=== PATIENT | female | born 1995 | race Caucasian/White ===

== ENCOUNTER 2022-08-11 09:24 | Emergency (ER) | payer OTHER, SELFPAY ==
[2022-08-11 10:07] VITALS: TEMP 36.6
[2022-08-11 10:11] VITALS: BP 109/72; PULSE 85; RESP 20; O2SAT 100
--- NOTE | 2022-08-11 10:57 | ED.GENADULT ---
HPI - General Adult General Chief complaint: Abdominal Pain Stated complaint: nausea,diarrhea,headache Time Seen by Provider: 08/11/22 10:15 Source: patient, RN notes reviewed and old records reviewed Mode of arrival: ambulatory Limitations: no limitations History of Present Illness HPI narrative: 27 year old female who presents to express care with complaints of nausea with some diarrhea intermittently for the past 2 weeks, patient also reports that she had migraine also.Patient reports cramping pain at times to lower abdomen. Patient reports that she had one episode of vomiting yesterday. Patient states that her last menses was in the first part of July, states her menses is irregular not sure if she could be . Patient reports that she has some lower abdominal cramping type of discomfort that is mild but increases when she has stools, last diarrhea stool last p.m. Patient denies any fevers, chills, or sweats. Patient reports that she has some urinary frequency denies any burning with urination. Patient states no one else in household is ill. MD complaint: nausea and diarrhea with emesis yesterday Onset (ago): week(s) (diarrhea and nausea) Treatments prior to arrival: other (tylenol) Related Data Allergies Allergy/AdvReac Type Severity Reaction Status Date / Time No Known Allergies Allergy Verified 08/11/22 11:00 Review of Systems Review of Systems: CONSTITUTIONAL: Denies fever, chills, or sweats. EYES: Denies visual changes, redness, or discharge. ENT: Denies rhinorrhea, congestion, sore throat, or otalgia. CARDIOVASCULAR: Denies chest pain, palpitations, or edema. RESPIRATORY: Denies cough or dyspnea. GASTROINTESTINAL: reports lower abdominal cramping, nausea, vomiting x1, diarrhea last stool last night GENITOURINARY: Denies dysuria or hematuria reports frequency of urination SKIN: Denies rash or itching. MUSCULOSKELETAL: Denies back pain, joint pain, or myalgia. NEUROLOGIC: Reports some headache discomfort, no numbness, or weakness. All systems reviewed & are unremarkable except as noted in HPI and below Course Course Level of Care: Express Care Visit Vital Signs Vital signs: Vital Signs Oxygen Delivery Room Air 08/11/22 10:07 Pulse Rate 80 08/11/22 11:10 Respiratory Rate 16 08/11/22 11:10 Blood Pressure 108/70 08/11/22 11:10 Pulse Oximetry 99 08/11/22 11:10 Oxygen Delivery Room Air 08/11/22 11:10 Medical Decision Making Differential Diagnosis Differential Diagnosis: Gastroenteritis, nausea with diarrhea, urinary symptoms of frequency, abdominal discomfort, Medical Records Medical records reviewed: Yes I reviewed the external patient's medical records. Vital Signs Vital Signs: Vital Signs Oxygen Delivery Room Air 08/11/22 10:07 Pulse Rate 80 08/11/22 11:10 Respiratory Rate 16 08/11/22 11:10 Blood Pressure 108/70 08/11/22 11:10 Pulse Oximetry 99 08/11/22 11:10 Oxygen Delivery Room Air 08/11/22 11:10 Lab Data Lab results reviewed: Yes I reviewed the patient's lab results. Lab results narrative: urine dip: glucose negative,bilirubin negative,ketone negative, specific gravity 1.025,blood negative, PH 6.5,protein negative, urobilinogen 0.2, nitrate negative,Leukocyte trace, bed side negative Labs: UCG Bedside Result Negative Reference Range: Negative Urine Glucose Negative Reference Range: Negative Urine Bilirubin Negative Reference Range: Negative Urine Ketone Negative Reference Range: Negative Urine Specific [place] 1.025 Reference Range:1.001-1.035 Urine Blood Negative
[2022-08-11 11:10] VITALS: BP 108/70; PULSE 80; RESP 16; O2SAT 99
== END 2022-08-11 11:10 | disposition home or self-care (01) ==
PROVIDERS: Emergency Provider Registered Nurse
DX: K52.9 Noninfective gastroenteritis and colitis, unspecified (principal)
CPT/HCPCS: 81003; 81025; 99213; G0463

== ENCOUNTER 2023-05-08 22:19 | Emergency (ER) | payer OTHER, SELFPAY ==
[2023-05-08 22:31] VITALS: BP 127/73; PULSE 96; RESP 14; TEMP 36.5; O2SAT 99
[2023-05-09 00:19] VITALS: BP 138/92; PULSE 93; RESP 17; O2SAT 100
[2023-05-09 00:49] LABS: Appearance Urine Clear (Clear); Bilirubin Urine Negative (Negative); Blood Urine Negative (Negative); Color Urine Yellow (Yellow); Glucose Urine UA Negative (Negative); Ketones Urine Negative (Negative); Leukocyte Esterase Ur Negative LEU/UL (Negative); Nitrate Urine Negative (Negative); Protein Urine Negative (Negative); Specific Grav Ur 1.021 (1.001-1.035)
[2023-05-09 00:57] LABS: Alanine Aminotransferase 29 U/L (6-35); Albumin Level 4.2 g/dL (3.5-5.1); Alkaline Phosphatase 72 U/L (38-126); Anion Gap 7 mmol/L (8-16); Aspartate Amino Transferase 25 U/L (14-36); Bilirubin,Total 0.4 mg/dL (0.2-1.3); Blood Urea Nitrogen 9 mg/dL (7-17); Calcium 9.1 mg/dL (8.4-10.2); Carbon Dioxide 22 mmol/L (22-30); Chloride 104 mmol/L (98-107); Estimated CRCL calculation 220 ml/min; Estimated Glomerular Filt Rate > 60; Glucose 89 mg/dL (65-110); Lipase 30 U/L (23-300); Potassium 4.2 mmol/L (3.4-5.0); Sodium 133 mmol/L (137-145)
[2023-05-09 01:05] LABS: Basophils Absolute Auto 0.1 K/mm3 (0.0-0.1); Basophils Percent Auto 0.7 % (0.2-1.2); Eosinophils Absolute Auto 0.1 K/mm3 (0-0.3); Eosinophils Percent Auto 1.3 % (0-4.4); Hematocrit 35.8 % (37.0-47.0); Hemoglobin 11.3 g/dL (12.0-15.0); Immature Granulocyte Absolute 0.07 K/mm3 (0.00-0.031); Immature Granulocyte Percent A 0.8 % (0-0.5); Lymphocytes Absolute Auto 2.34 K/mm3 (0.9-3.2); Lymphocytes Percent Auto 28.3 % (18.3-44.2); Mean Corpuscular HGB Conc 31.6 g/dl (32-36); Mean Corpuscular Hemoglobin 25.1 pg (26-34); Mean Corpuscular Volume 79.4 fl (80-100); Mean Platelet Volume 10.2 fl (7.4-10.4); Monocytes Absolute Auto 0.6 K/mm3 (0.1-0.6); Monocytes Percent Auto 6.8 % (2.6-8.5); Neutrophils Absolute Auto 5.1 K/mm3 (1.3-6.7); Neutrophils Percent Auto 62.1 % (45.5-73.1); Platelet Count Result 296 k/mm3 (150-375); Red Blood Count 4.51 M/mm3 (4.2-5.4); Red Cell Distribution Width 15.6 % (11.5-14.5); White Blood Count 8.3 K/mm3 (4.5-10.0)
[2023-05-09] MEDS: ONDANSETRON INJ 4 MG/2 ML VIAL IV PUSH (01:06)
[2023-05-09] MEDS: SODIUM CHLORIDE 0.9% IV 1,000 ML 999 ML IV CONT ×2 (01:06)
[2023-05-09 01:08] VITALS: BP 122/76; PULSE 79; RESP 15; O2SAT 99
[2023-05-09 01:15] VITALS: BP 120/71; PULSE 81; RESP 18; O2SAT 99
[2023-05-09 01:17] LABS: Add Urine Microscopic? NO
--- NOTE | 2023-05-09 01:28 | ED.GENADULT ---
HPI - General Adult General Chief complaint: Nausea/Vomiting/Diarrhea Stated complaint: N/V 11 weeks Time Seen by Provider: 05/09/23 02:04 Source: patient Mode of arrival: ambulatory Limitations: no limitations History of Present Illness HPI narrative: 27 years old white female came to the emergency room with vomiting since been , 11 weeks. Been seen by her ACCELERATOR OPERATOR numerous of times last 1 was April 26. She is not on any antivomiting medication. She denies any fever, chills, diarrhea, urinary symptoms. She is 5, para 2 2, she denies any vaginal bleeding or discharge or abdominal pain. Related Data Allergies Allergy/AdvReac Type Severity Reaction Status Date / Time No Known Allergies Allergy Verified 08/11/22 11:00 Review of Systems Review of Systems: All systems reviewed & are unremarkable except as noted in HPI and below Exam Narrative: General appearance: Well-developed, well-nourished Skin: Normal color Head: Normocephalic, nontraumatic Eyes: Clear conjunctiva ENT: Oropharynx normal, ears normal, nose normal Neck: Supple, nontender Chest and respiratory: Airway patent, no respiratory distress, no accessory muscle use Heart: Regular rate/rhythm Abdomen: Soft, nontender, no organomegaly, quiet bowel sounds Vascular: Normal peripheral pulses, normal capillary refill. Musculoskeletal: Normal range of motion, nontender back Neurologic: Alert and oriented ?3, GYM MANAGER is normal as tested, no gross motor deficit Course Reevaluation(s) Reevaluation #1: Patient feeling much better after 2 L of normal saline. Date: 05/09/23 Time: 02:16 Vital Signs Vital signs: Vital Signs Temperature 36.5 C 05/08/23 22:31 Pulse Rate 96 05/08/23 22:31 Respiratory Rate 14 05/08/23 22:31 Blood Pressure 127/73 05/08/23 22:31 Pulse Oximetry 99 05/08/23 22:31 Oxygen Delivery Room Air 05/08/23 22:31 Temperature 36.5 C 05/08/23 22:31 Pulse Rate 93 05/09/23 00:19 Respiratory Rate 17 05/09/23 00:19 Blood Pressure 138/92 H 05/09/23 00:19 Pulse Oximetry 100 05/09/23 00:19 Oxygen Delivery Room Air 05/08/23 22:31 Medical Decision Making MDM Narrative Medical decision making narrative: Patient presents with vomiting since she been today is little bit worse than before. Differential diagnosis hyperemesis gravidarum, urinary tract infection, dehydration, electrolyte imbalance Physical examination is unremarkable. Work-up today showed normal CBC, normal chemistry, clean urine, blood pressure on arrival 127/73. Patient received 2 L of normal saline IV, 4 mg of Zofran IV, feels much better and ready to go home. the pt was discharged to home.the pt,s condition upon discharge was fair,education was provided to the pt in reference to the final impression,discharge study results,treatment,prognosis and need for follow up . Differential Diagnosis Differential Diagnosis: Hyperemesis gravidarum, viral gastroenteritis, urinary tract infection, electrolyte imbalance, dehydration Vital Signs Vital Signs: Vital Signs Temperature 36.5 C 05/08/23 22:31 Pulse Rate 96 05/08/23 22:31 Respiratory Rate 14 05/08/23 22:31 Blood Pressure 127/73 05/08/23 22:31 Pulse Oximetry 99 05/08/23 22:31 Oxygen Delivery Room Air 05/08/23 22:31 Temperature 36.5 C 05/08/23 22:31 Pulse Rate 93 05/09/23 00:19 Respiratory Rate 17 05/09/23 00:19 Blood Pressure 138/92 H 05/09/23 00:19 Pulse Oximetry 100 05/09/23 00:19 Oxygen Delivery Room Air 05/08/23 22:31 Lab Data Lab results reviewed: Yes I reviewed the patient's lab results. 05/09/23 00:41 05/09/23 00
[2023-05-09 01:30] VITALS: BP 118/75; PULSE 86; RESP 14; O2SAT 98
[2023-05-09 02:55] VITALS: BP 114/62; PULSE 79; RESP 20; O2SAT 98
== END 2023-05-09 03:05 | disposition home or self-care (01) ==
PROVIDERS: Physician Assistant; Emergency Provider Emergency Medicine
DX: O21.0 Mild hyperemesis gravidarum (principal); Z3A.11 11 weeks gestation of pregnancy
CPT/HCPCS: 36415; 80053; 81003; 81025; 83690; 84702; 85025; 96361; 96374; 99284; J2405; J7030

== ENCOUNTER 2023-08-23 21:05 | Emergency (ER) | payer OTHER, SELFPAY ==
--- NOTE | ~2023-08-23 | XR_ITS ---
Portable chest x-ray Comparison: None Clinical History: Chest pain Findings: Lungs are clear, without focal consolidation or pleural effusion. Cardiomediastinal silho uette is unremarkable. Bones and soft tissues are unremarkable. Impression: Normal chest. Reviewed, dictated and finalized at location M. Impression: Normal chest.
--- NOTE | 2023-08-23 21:07 | ECG_ITS ---
Measurements Intervals [place] Rate: 97 P: 54 MI: 125 QRS: 50 QRSD: 93 T: 34 QT: 341 QTc: 433 Interpretive Statements SINUS RHYTHM NORMAL ECG NO PREVIOUS ECG AVAILABLE FOR COMPARISON Electronically Signed On 08-24-2023 8:56:19 CDT by Curly Martinez M.D.
[2023-08-23 21:15] VITALS: BP 139/91; PULSE 97; RESP 18; TEMP 36.7; O2SAT 98
[2023-08-23 22:30] VITALS: BP 132/86; PULSE 96; PULSE 97; RESP 14; O2SAT 100
--- NOTE | 2023-08-23 23:00 | PC.NURSE ---
pt. reports to RN that they are having lower abd pain that has been going on for approx. one week. ERP and draw press operator made aware. OB called to examine pt.
[2023-08-24] VITALS: BP 131/81; PULSE 97; RESP 14; O2SAT 98
--- NOTE | 2023-08-24 00:26 | PC.NURSE ---
OB 2 labor nurses went over to the ED. FHT 140's with audible arrhythmia. rare contraction seen on tracing patient states no longer feels cramping. reported to
[2023-08-24 02:14] VITALS: BP 136/89; PULSE 118; RESP 21; O2SAT 100
[2023-08-24] MEDS: ACETAMINOPHEN 325 MG TABLET 650 MG PO (02:14)
[2023-08-24 02:20] LABS: Basophils Absolute Auto 0.1 K/mm3 (0.0-0.1); Basophils Percent Auto 0.8 % (0.2-1.2); Eosinophils Absolute Auto 0.1 K/mm3 (0-0.3); Eosinophils Percent Auto 1.3 % (0-4.4); Hemoglobin 10.1 g/dL (12.0-15.0); Immature Granulocyte Absolute 0.19 K/mm3 (0.00-0.031); Immature Granulocyte Percent A 1.9 % (0-0.5); Immature Platelet Fraction Pct 7.6 % (0.9-11.2); Lymphocytes Absolute Auto 2.22 K/mm3 (0.9-3.2); Lymphocytes Percent Auto 21.9 % (18.3-44.2); Mean Corpuscular HGB Conc 30.6 g/dl (32-36); Mean Corpuscular Hemoglobin 25.4 pg (26-34); Mean Corpuscular Volume 82.9 fl (80-100); Mean Platelet Volume 11.1 fl (7.4-10.4); Monocytes Absolute Auto 0.7 K/mm3 (0.1-0.6); Monocytes Percent Auto 6.5 % (2.6-8.5); Neutrophils Absolute Auto 6.9 K/mm3 (1.3-6.7); Neutrophils Percent Auto 67.6 % (45.5-73.1); Platelet Count Result 243 k/mm3 (150-375); Red Blood Count 3.98 M/mm3 (4.2-5.4); Red Cell Distribution Width 15.9 % (11.5-14.5); White Blood Count 10.2 K/mm3 (4.5-10.0)
[2023-08-24 02:27] LABS: Anion Gap 7 mmol/L (8-16); Blood Urea Nitrogen 8 mg/dL (7-17); Calcium 8.7 mg/dL (8.4-10.2); Carbon Dioxide 18 mmol/L (22-30); Chloride 107 mmol/L (98-107); Estimated CRCL calculation 286 ml/min; Estimated Glomerular Filt Rate > 60; Glucose 92 mg/dL (65-110); Potassium 3.9 mmol/L (3.4-5.0); Sodium 132 mmol/L (137-145)
[2023-08-24 02:39] LABS: Large Platelets Present; Platelet Estimate Adequate (Adequate); Polychromasia 1+ (NORMAL)
[2023-08-24 02:39] LABS: Troponin I < 0.012 ng/mL (0.000-0.034)
[2023-08-24 02:40] LABS: Anisocytosis 1+ (NORMAL); Schistocytes None Seen (NORMAL)
[2023-08-24 03:30] VITALS: BP 120/57; PULSE 90; RESP 19; O2SAT 97
[2023-08-24 04:31] LABS: NT Pro B Type Natriuretic Pept < 20 pg/mL (19.9-100)
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
[2023-08-24 04:50] VITALS: BP 131/74; PULSE 81; RESP 19; O2SAT 97
== END 2023-08-24 04:50 | disposition home or self-care (01) ==
PROVIDERS: Emergency Provider Student in an Organized Health Care Education/Training Program; PCP Nurse Practitioner Family
DX: O26.892 Other specified pregnancy related conditions, second trimester (principal); R07.89 Other chest pain; Z3A.26 26 weeks gestation of pregnancy
CPT/HCPCS: 36415; 71045; 80048; 83880; 84484; 85025; 85055; 93005; 99284; A9270

== ENCOUNTER 2023-12-08 09:55 | Emergency (ER) | payer OTHER, SELFPAY ==
--- NOTE | 2023-12-08 10:07 | ED.URI ---
HPI - URI/Sore Throat General Chief Complaint: Upper Respiratory Infection Stated Complaint: RUNNY NOSE/COUGH/SORE THROAT Time Seen by Provider: 12/08/23 10:07 Source: patient, RN notes reviewed and old records reviewed Mode of arrival: ambulatory Limitations: no limitations History of Present Illness HPI Narrative: 28 year female presents to the [facility] with and 3 children with complaints of a cough, sore throat and runny nose for 6 days. Symptoms started on Tuesday. States he has taken a couple of doses of Tylenol cold and Sinus. Denies any fevers, chest pain. Denies any shortness of breath. Patient most concerned that she has strep throat. Treatments prior to arrival: acetaminophen Related Data Allergies Allergy/AdvReac Type Severity Reaction Status Date / Time No Known Allergies Allergy Verified 08/23/23 21:06 Review of Systems Review of Systems: All systems reviewed & are unremarkable except as noted in HPI and below Constitutional: Constitutional: Reports no additional constitutional complaints Eyes: Eyes: Reports no additional eye complaints ENT: Reports as per HPI, Reports nasal congestion and Reports sore throat Cardiovascular: Cardiovascular: Reports no additional cardiovascular complaints, Denies chest pain and Denies dyspnea Respiratory: Respiratory: Reports as per HPI, Denies chest congestion, Reports cough and Denies dyspnea Gastrointestinal: Gastrointestinal: Reports no additional gastrointestinal complaints, Denies abdominal pain, Denies nausea and Denies vomiting Musculoskeletal: Musculoskeletal: Reports no additional musculoskeletal complaints Integumentary/Breasts: Skin/Breast: Reports system reviewed and no additional complaints, except as docu Neurologic: Reports system reviewed and no additional complaints, except as documented Psychiatric: Psychiatric: Reports no additional psychiatric complaints Allergic/Immunologic: Allergic/Immunologic: Reports no additional allergic/immunologic complaints PMFSH Social History Social History Smoking status: Never smoker Alcohol intake: never Substance use: never Comments At the time of my signature, I reviewed and agree with the nursing past medical, surgical, social, and family history. There is no relevant family history pertinent to the patient complaint. Exam Const: General: cooperative, healthy appearing, comfortable, no acute distress, well developed, alert and well nourished Nutritional Appearance: well nourished and obese morbidly obese Orientation/consciousness: patient oriented x3 Limitations: no limitations HENMT: Head: normal to inspection Ears: hearing grossly normal bilaterally, external ears normal, TM's normal bilaterally, mastoids normal and no periauricular adenopathy Face/Nose/Sinus: Normal external nose present, Normal nares present, Normal nasal mucous membranes and turbinates present, normal facial exam and face symmetric Face and sinus: normal facial exam and face symmetric Mouth: Yes Normal oral and palatal mucosa present, Yes lip normal and Yes moist mucous membranes Throat: posterior oropharynx normal, uvula midline and no uvular edema Eyes: General: appearance normal, both eyes and all related structures Alignment and Position: alignment normal Periorbital: periorbital findings normal Pupils: Equal, round and reactive pupils present EOM: EOMs intact bilaterally Neck: Neck: normal visual inspection, full ROM, no lymphadenopathy and no meningeal signs Chest: Chest palpation & inspection: normal inspection of the chest Resp: Effort & Inspection: normal respiratory effort and able to speak in complete sentences Auscultation: clear to auscultation bilaterally, no crackles, no rales, no rhonchi and no wheezes Cardio: Rate: regular rate Rhythm: regular rhythm Back/Spine/Pelvis: Cervical Spine: cervical ROM normal Skin: General skin exam: normal co
[2023-12-08 10:28] VITALS: BP 120/86; PULSE 105; RESP 16; TEMP 36.8; O2SAT 97
== END 2023-12-08 11:25 | disposition home or self-care (01) ==
PROVIDERS: Emergency Provider Nurse Practitioner; PCP Nurse Practitioner Family
DX: O99.53 Diseases of the respiratory system complicating the puerperium (principal); J06.9 Acute upper respiratory infection, unspecified
CPT/HCPCS: 87081; 87880; 99213; G0463

== ENCOUNTER 2024-01-09 17:18 | Emergency (ER) | payer OTHER, SELFPAY ==
--- NOTE | ~2024-01-09 | US_ITS ---
EXAMINATION: US venous doppler LE RT DATE: 01/09/2024 18:21 INDICATION: Lower limb pain. TECHNIQUE: Grayscale images without and with compression and Doppler images of the right lower extrem ity veins were obtained. COMPARISON: None FINDINGS: The right common femoral vein, profunda (deep) femoral vein, femoral vein, popliteal vein, peroneal v ein, posterior tibial veins, gastrocnemius vein, and greater saphenous vein are patent. IMPRESSION: Patent right lower extremity veins. No evidence of deep venous thrombosis. Reviewed, dictated and finalized at location K. ING/POLISHING OPERATOR
[2024-01-09 17:25] VITALS: BP 129/96; PULSE 109; RESP 20; TEMP 36.6; O2SAT 99
--- NOTE | 2024-01-09 17:42 | ED.GENADULT ---
HPI - General Adult General Chief complaint: Extremity Problem,Nontraumatic <Radha Lieberman March, - Last Filed: 01/09/24 17:44> Stated complaint: right lower leg pain <Radha Lieberman March, - Last Filed: 01/09/24 17:44> Time Seen by Provider: 01/09/24 17:42 <Radha Lieberman March, - Last Filed: 01/09/24 17:44> Focused HPI: Fatimah Lopez is a 28 y/o female is 6 weeks vaginal delivery no complications and also on control who presents with reports having severe pain to her right calf that she noticed about 2 days ago. No personal hx of blood clots but the do run in her family. GENERAL: Well-appearing, well-nourished, and in no acute distress. HEAD: Normocephalic, atraumatic. CHEST: Clear to auscultation. ?No respiratory distress. HEART: Regular rate and rhythm.? NEURO: ?Alert and oriented x3. Patient screened in triage and initial orders placed.? ?Additional care and disposition to be based upon?diagnostic testing and treatment. <Radha Lieberman March, - Last Filed: 01/09/24 17:44> Related Data Home medications: Home Medications Medication Instructions Recorded Confirmed sertraline 100 mg tablet 100 mg PO DAILY 12/08/23 12/08/23 <Radha Lieberman March, - Last Filed: 01/09/24 17:44> Allergies/adverse reactions: Allergies Allergy/AdvReac Type Severity Reaction Status Date / Time prochlorperazine AdvReac Anxiety Verified 01/09/24 17:29 [From Compazine] <Radha Lieberman March, - Last Filed: 01/09/24 17:44> Review of Systems Review of Systems: CONSTITUTIONAL: Denies fever SKIN: Denies rash MUSCULOSKELETAL: Reports myalgia. NEUROLOGIC: Denies numbness <Lolis Gaspar PA-C - Last Filed: 01/09/24 19:27> All systems reviewed & are unremarkable except as noted in HPI and below <Lolis Gaspar PA-C - Last Filed: 01/09/24 19:27> PMFSH Past Medical History Medical History: Medical History (Updated 01/09/24 @ 19:25 by Lolis Gaspar PA-C) No active medical problems <Radha Light APRN - Last Filed: 01/09/24 17:44> Social History Social History: Social History Smoking status: Never smoker Alcohol intake: never Substance use: never <Radha Light APRN - Last Filed: 01/09/24 17:44> Exam Narrative: GENERAL: Well-appearing, well-nourished, and in no acute distress. HEAD: Normocephalic, atraumatic. EYES: EOMI. EXTREMITIES: Normal range of motion. No edema, erythema. Normal DP pulse. Normal sensation SKIN: Warm, dry, no rash. NEURO: No focal deficits. Alert and oriented x3. PSYCH: Normal mood and affect <Lolis Gaspar PA-C - Last Filed: 01/09/24 19:27> Course Course Emergency Course: Patient updated on her workup and agrees with plan of care <Lolis Gaspar PA-C - Last Filed: 01/09/24 19:27> Vital Signs Vital signs: Vital Signs Temperature 97.9 F 01/09/24 17:25 Pulse Rate 109 H 01/09/24 17:25 Respiratory Rate 20 01/09/24 17:25 Blood Pressure 129/96 H 01/09/24 17:25 Pulse Oximetry 99 01/09/24 17:25 Oxygen Delivery Room Air 01/09/24 17:25 Temperature 97.9 F 01/09/24 17:25 Pulse Rate 110 H 01/09/24 19:16 Respiratory Rate 20 01/09/24 19:16 Blood Pressure 119/85 01/09/24 19:16 Pulse Oximetry 98 01/09/24 19:16 Oxygen Delivery Room Air 01/09/24 17:25 <Radha Light, MEASUREMENT DEPARTMENT CHIEF CLERK - Last Filed: 01/09/24 17:44> Vital Signs Temperature 97.9 F 01/09/24 17:25 Pulse Rate 109 H 01/09/24 17:25 Respiratory Rate 20 01/09/24 17:25 Blood Pressure 129/96 H 01/09/24 17:25 Pulse Oximetry 99 01/09/24 17:25 Oxygen Delivery Room Air 01/09/24 17:25 Temperature 97.9 F 01/09/24 17:25 Pulse Rate 110 H 01/09/24 19:16 Respiratory Rate 20 01/09/24 19:16 Blood Pressure 119/85 01/09/24 19:16 Pulse Oximetry 98 01/09/24 19:16 Oxygen Delivery Room Air 01/09/24 17:25 <Lolis Gaspar PA-C - Last Filed:
[2024-01-09 18:14] LABS: Basophils Absolute Auto 0.1 K/mm3 (0.0-0.1); Basophils Percent Auto 0.7 % (0.2-1.2); Eosinophils Absolute Auto 0.2 K/mm3 (0-0.3); Eosinophils Percent Auto 2.1 % (0-4.4); Hematocrit 33.7 % (37.0-47.0); Hemoglobin 9.6 g/dL (12.0-15.0); Immature Granulocyte Absolute 0.21 K/mm3 (0.00-0.031); Immature Granulocyte Percent A 1.9 % (0-0.5); Lymphocytes Absolute Auto 2.23 K/mm3 (0.9-3.2); Lymphocytes Percent Auto 19.8 % (18.3-44.2); Mean Corpuscular HGB Conc 28.5 g/dl (32-36); Mean Corpuscular Hemoglobin 21.7 pg (26-34); Mean Corpuscular Volume 76.1 fl (80-100); Monocytes Absolute Auto 0.7 K/mm3 (0.1-0.6); Neutrophils Absolute Auto 7.8 K/mm3 (1.3-6.7); Neutrophils Percent Auto 69.5 % (45.5-73.1); Platelet Count Result 324 k/mm3 (150-375); Red Blood Count 4.43 M/mm3 (4.2-5.4); Red Cell Distribution Width 16.7 % (11.5-14.5); White Blood Count 11.3 K/mm3 (4.5-10.0)
[2024-01-09 18:17] LABS: Prothrombin Time 13.6 Seconds (11.1-14.7)
[2024-01-09 18:18] LABS: Partial Thromboplastin Time 29.3 SECONDS (22.3-36.8)
[2024-01-09 18:19] LABS: Anion Gap 8 mmol/L (8-16); Blood Urea Nitrogen 12 mg/dL (7-17); Calcium 9.2 mg/dL (8.4-10.2); Carbon Dioxide 23 mmol/L (22-30); Chloride 108 mmol/L (98-107); Estimated CRCL calculation 131 ml/min; Estimated Glomerular Filt Rate > 60; Glucose 111 mg/dL (65-110); Potassium 4.1 mmol/L (3.4-5.0); Sodium 139 mmol/L (137-145)
[2024-01-09 18:39] LABS: Platelet Estimate Adequate (Adequate); Schistocytes None Seen (NORMAL)
[2024-01-09 18:40] LABS: Hypochromasia 1+ (NORMAL)
[2024-01-09 18:41] LABS: Anisocytosis 2+ (NORMAL)
[2024-01-09 18:55] LABS: Creatine Kinase 52 U/L (30-135)
[2024-01-09 19:16] VITALS: BP 119/85; PULSE 110; RESP 20; O2SAT 98
== END 2024-01-09 19:30 | disposition home or self-care (01) ==
PROVIDERS: Nurse Practitioner Family; Emergency Provider Physician Assistant; PCP Nurse Practitioner Family
DX: O99.893 Other specified diseases and conditions complicating puerperium (principal); M79.661 Pain in right lower leg; O90.81 Anemia of the puerperium
CPT/HCPCS: 36415; 80048; 82550; 85025; 85610; 85730; 93971; 99284

== ENCOUNTER 2024-07-06 16:10 | Emergency (ER) | payer OTHER, SELFPAY ==
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
[2024-07-06 16:12] VITALS: BP 130/79; PULSE 100; RESP 16; TEMP 36.6; O2SAT 100
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
[2024-07-06] MEDS: CYCLOBENZAPRINE HCL 10 MG TABLET PO (16:40)
[2024-07-06 17:12] VITALS: BP 115/83; PULSE 96; RESP 20; TEMP 37; O2SAT 95
== END 2024-07-06 17:16 | disposition home or self-care (01) ==
PROVIDERS: Emergency Provider Physician Assistant; PCP Nurse Practitioner Family
DX: S50.12XA Contusion of left forearm, initial encounter (principal); S16.1XXA Strain of muscle, fascia and tendon at neck level, initial encounter; V43.52XA Car driver injured in collision with other type car in traffic accident, initial encounter
CPT/HCPCS: 72125; 73090; 99284; A9270

== ENCOUNTER 2024-09-01 18:05 | Emergency (ER) | payer OTHER, SELFPAY ==
[2024-09-01] VITALS (9 sets, daily range): BP systolic 104–133; BP diastolic 77–94; PULSE 78–87; RESP 14–15; TEMP 36.6; O2SAT 98–99
--- NOTE | 2024-09-01 19:38 | ED.GENADULT ---
[facility] - General Adult General Chief complaint: Unspecified Stated complaint: right breast pain Time Seen by Provider: 09/01/24 18:20 Source: patient Mode of arrival: ambulatory Limitations: no limitations History of Present Illness [facility] narrative: This is a 29-year-old female who presents to the ED for chief complaint of pain and redness to the right breast. States that she has noticed the red rash over the past couple of days. States that she picks her skin when she is anxious and she had a draining central wounds to the area. Reports it was draining pus earlier but has healed up a little bit since then. Denies fevers, chills, nausea, vomiting. denies any immunocompromised condition Related Data Home Medications Medication Instructions Recorded Confirmed sertraline 100 mg tablet 100 mg PO DAILY 12/08/23 12/08/23 Allergies Allergy/AdvReac Type Severity Reaction Status Date / Time prochlorperazine AdvReac Anxiety Verified 09/01/24 18:27 [From Compazine] Review of Systems Review of Systems: All systems as dictated in [facility] Past Medical History Medical History No active medical problems Social History Social History Smoking status: Never smoker Alcohol intake: never Substance use: never Exam Narrative: GENERAL: Well-appearing, well-nourished, and in no acute distress. HEAD: Normocephalic, atraumatic. EYES: PERRLA and EOMI. ENT: Nares clear, no rhinorrhea or epistaxis. Mucous membranes moist. Oropharynx without tonsillar hypertrophy exudate or other lesions. NECK: Supple. No adenopathy or masses. CHEST: No respiratory distress. Clear to auscultation. No wheezes rales or rhonchi 4 x 3 cm area of erythema to the right breast superficially. There is a central 1 cm circular wound that is healing. No active drainage. No underlying abscess detected. HEART: Regular rate and rhythm. No murmur heard. Normal peripheral pulses. ABDOMEN: Soft, nontender, nondistended, normal active bowel sounds. MSK: Normal range of motion. No edema. SKIN: Warm, dry, no rash. NEURO: Alert and oriented x4. No focal deficits. PSYCH: Normal mood and affect. Course Vital Signs Vital signs: Vital Signs Pulse Oximetry 99 09/01/24 18:10 Temperature 97.9 F 09/01/24 18:20 Pulse Rate 78 09/01/24 19:32 Respiratory Rate 15 09/01/24 19:32 Blood Pressure 104/94 H 09/01/24 19:32 Pulse Oximetry 99 09/01/24 19:32 Oxygen Delivery Room Air 09/01/24 18:20 Medical Decision Making MDM Narrative Medical decision making narrative: This is a 29 yo female presents to the ED for chief complaint of right breast redness and concern for infection. Vitals are normal. Exam remarkable for the above. Cellulitis is present. Low suspicion for abscess. The cellulitis is quite limited. Patient will be given outpatient course of antibiotics and instructed follow-up with PCP. Patient will be discharged in stable condition. Supportive measures discussed and return precautions given. Patient is understanding and agreeable with plan for discharge with PCP follow-up. Vital Signs Vital Signs: Vital Signs Pulse Oximetry 99 09/01/24 18:10 Temperature 97.9 F 09/01/24 18:20 Pulse Rate 78 09/01/24 19:32 Respiratory Rate 15 09/01/24 19:32 Blood Pressure 104/94 H 09/01/24 19:32 Pulse Oximetry 99 09/01/24 19:32 Oxygen Delivery Room Air 09/01/24 18:20 Discharge Plan Discharge Clinical Impression: Cellulitis Patient Disposition: Home, Self-Care Condition: Stable Instructions: Antibiotic Form Additional Instructions: your exam does show evidence of a infection of the skin. Please take antibiotics as prescribed. Use Tylenol and ibuprofen regularly for pain control and fever control. If you have any new or worsening symptoms please return to the ER for further evaluation. Prescriptions: New cephalexin 500 mg capsule 500 mg PO Q8H 7 Days Qty: 21 0RF No Action sertraline 100 mg tablet 100 mg PO DAILY cyclobenzaprine 10 mg tablet 10 mg PO TID PRN (Reason: muscle spasm) Qty: 14 0RF Follow-up/Referrals: Petey,Dian Small APRN [Primary Care Provider] - Time of Disposition: 19:40
== END 2024-09-01 19:49 | disposition home or self-care (01) ==
PROVIDERS: Emergency Provider Physician Assistant; PCP Nurse Practitioner Family
DX: N61.0 Mastitis without abscess (principal)
CPT/HCPCS: 99283

== ENCOUNTER 2024-11-18 12:41 | Emergency (ER) | payer OTHER, SELFPAY ==
[2024-11-18 12:43] VITALS: BP 140/85; PULSE 111; RESP 18; TEMP 36.5
--- NOTE | 2024-11-18 14:54 | PC.NURSE ---
patient to desk stating that she was going to leave at this time. patient ambulatory at time of leaving. advised to come back to ER if symptoms progress.
== END 2024-11-18 15:35 | disposition left against medical advice (07) ==
PROVIDERS: PCP Nurse Practitioner Family
DX: S89.92XA Unspecified injury of left lower leg, initial encounter (principal)
CPT/HCPCS: 99199